=== PATIENT | female | born 1935 | race Caucasian/White ===

== ENCOUNTER 2019-06-17 09:06 | Day surgery (SDC) | payer MEDICARE, BC ==
[~2019-06-17 09:06] MED LIST: Lactated Ringers 1,000 ML IV SCH; Sodium Chloride 0.9% 10 ML Syringe FLUSH PRN
[2019-06-17] MEDS ORDERED: Propofol 200 MG/20 ML SDV ONE (11:08)
[2019-06-17] MEDS ORDERED: fentaNYL 100 MCG/2 ML SDV ONE (11:09)
[2019-06-17 13:34] VITALS: BP 128/59; PULSE 64
--- NOTE | 2019-06-17 23:18 | OR ---
SURGERY DATE: 06/17/2019. REFERRING PROVIDER: Sai Ruelas MD. PRE-OPERATIVE DIAGNOSIS: Chronic gastritis with "sour stomach." The patient did have 1 episode of recurrent emeses. She is currently on omeprazole 20 mg twice a day for 2 weeks, then once a day thereafter, and symptoms have been improving. POST-OPERATIVE DIAGNOSIS: 1. Minimal antritis. Cold biopsy x2 bites taken from the antrum for pathology and Helicobacter pylori. 2. Tiny 2 mm polyp of the fundus, removed using cold forceps. 3. Otherwise, normal upper endoscopy. PROCEDURE: Esophagogastroduodenoscopy with cold biopsy x1 site and polypectomy x1 using cold forceps. SURGEON: Varun Valladares M.D. ANESTHESIA: Monitored anesthesia care. Chapis is an 84-year-old female, who was brought to the endoscope suite after discussion of risks and benefits (including but not limited to reaction to medication, bleeding, infection, aspiration, perforation). Informed consent was obtained for monitored anesthesia care and esophagogastroduodenoscopy along with possible biopsy and/or dilatation. Pre-procedure exam including oral cavity was remarkable for upper and lower dentures, which were removed for the procedure. IV, oxygen, and monitors were placed. Patient was placed in the left lateral position and sedation was administered. A bite block was placed gently and scope lightly lubricated and passed through the bite block and over the tongue. Hypopharynx and vocal cords were visualized and unremarkable. Scope was passed through the cricopharynx and into the esophagus. The scope was then passed through the distal esophagus and the GE junction was visualized and photographed. The GE junction was unremarkable. Hypopharynx and vocal cords were visualized and unremarkable. The scope was advanced into the stomach and gastric cordova was suctioned. She did have a mild amount of bile reflux noted. Pylorus was identified and intubated and then the scope was advanced to the third portion of the duodenum. The second and third portions of the duodenum were unremarkable. The duodenal bulb was visualized and unremarkable. The scope was brought back into the stomach. The pylorus and antrum were remarkable for some minimal antritis. Cold biopsy x2 bites was taken for path and H. pylori which were obtained from the antrum. The scope was retroflexed to visualize the angularis, fundus, body, and cardia. These were unremarkable except for a tiny 2 mm fundic polyp, which was removed using cold forceps. The stomach was desufflated of air and then the scope was slowly withdrawn, and the esophagus was closely visualized during withdrawal all the way into the posterior pharynx and this was normal. The patient tolerated the procedure well and went to recovery in stable condition. The patient was monitored until at baseline status. Findings and discharge instructions were reviewed and the patient was discharged in good condition. COMPLICATIONS: None TOTAL TIME: 7 minutes. ESTIMATED BLOOD LOSS: About 1 mL. RECOMMENDATIONS/FOLLOW-UP: We will await results of path report and send letter with results. I would have her continue on her current PPI prescription for control of her symptoms. I do not see any worrisome pathology on her scope today. I would like to kindly thank you, Sai Ruelas MD, for this referral. DMB: 06/17/2019 12:37:10 MODL: 06/17/2019 23:09:03 /[id number]
== END 2019-06-17 13:50 | disposition home or self-care (01) ==
LOC: VM.SDS 09:06
PROVIDERS: ATTEND Family Medicine
DX: K29.50 Unspecified chronic gastritis without bleeding (principal); K31.7 Polyp of stomach and duodenum; E78.5 Hyperlipidemia, unspecified; E11.9 Type 2 diabetes mellitus without complications; I10 Essential (primary) hypertension; M17.12 Unilateral primary osteoarthritis, left knee; M81.0 Age-related osteoporosis without current pathological fracture; Z79.899 Other long term (current) drug therapy
CPT/HCPCS: 00731; 43239; J2704; J3010; J7120

== ENCOUNTER 2022-08-28 23:15 | Emergency (ER) | payer MEDICARE, BC ==
[2022-08-28 23:36] VITALS: BP 158/84; PULSE 61
== END 2022-08-28 23:53 | disposition home or self-care (01) ==
LOC: VM.ED 23:15
DX: R04.0 Epistaxis (principal); I10 Essential (primary) hypertension; Z79.899 Other long term (current) drug therapy
CPT/HCPCS: 30901; 99283; 99284

== ENCOUNTER 2022-09-13 18:20 | Emergency (ER) | payer MEDICARE, BC ==
[2022-09-13] MEDS ORDERED: Oxymetazoline 0.05% Nasal Spray 30 ML Bottle ONE (18:31)
[2022-09-13 19:37] VITALS: BP 163/81; PULSE 96
== END 2022-09-13 18:52 | disposition home or self-care (01) ==
LOC: VM.ED 18:20
DX: R04.0 Epistaxis (principal); I10 Essential (primary) hypertension; Z79.899 Other long term (current) drug therapy
CPT/HCPCS: 30901; 99283; 99283-25; A9270-GY

== ENCOUNTER 2022-10-25 15:20 | Emergency (ER) | payer MEDICARE, BC ==
[2022-10-25 20:46] VITALS: BP 157/64; PULSE 71
== END 2022-10-25 16:15 | disposition home or self-care (01) ==
LOC: VM.ED 15:20
DX: R04.0 Epistaxis (principal); I10 Essential (primary) hypertension
CPT/HCPCS: 30901; 99283